=== PATIENT | female | born 1980 | race Caucasian/White ===

== ENCOUNTER 2022-06-24 07:49 | Emergency (ER) | payer OTHER, SELFPAY ==
[2022-06-24 07:52] VITALS: BP 109/72; PULSE 114; RESP 18; TEMP 38.3; O2SAT 99; BMI 23.4
--- NOTE | 2022-06-24 08:04 | EX.ED.DYSGE1 ---
HPI History of Present Illness Chief Complaint: Fever Narrative Narrative: 41-year-old female presenting with neck pain. She states it started on Friday and it was in the right side of her cervical spine and radiated into the trapezius. She states has been trying Motrin and ice and she has not had much success. It is now radiating into her right arm and down into her right posterior ribs. She states he is not short of breath or coughing but does note pain with twisting and moving. Patient went to urgent care today where she was incidentally noted to have a fever. Patient did not know of this. She has not felt sick. She has not had a fever, chills, sweats at home. She is not coughing or short of breath. She does no urinary or vaginal complaints. No diarrhea, nausea, vomiting, abdominal pain. PFSH PFSH Medical History Anxiety and depression Home Medications etonogestrel 0.12 mg-ethinyl estradiol 0.015 mg/24 hr vaginal ring (NuvaRing) 1 vag ring vaginal Q4W #3 ea 10/09/18 [Rx Last Taken Unknown] amoxicillin 875 mg-potassium clavulanate 125 mg tablet 1 tab PO BID #19 tabs 06/24/22 [Rx Last Taken Unknown] cyclobenzaprine 10 mg tablet 10 mg PO TID PRN Muscle Spasm #20 TABLETS 06/24/22 [Rx Last Taken Unknown] escitalopram oxalate 20 mg tablet mg 06/24/22 [History Last Taken Unknown] hydrocodone-acetaminophen 5-325mg 5mg-325mg 1 tab PO Q6H PRN pain 3 days #12 TABLETS 06/24/22 [Rx Last Taken Unknown] quetiapine 50 mg tablet mg 06/24/22 [History Last Taken Unknown] Allergy/AdvReac Type Severity Reaction Status Date / Time mirtazapine [From Remeron] Allergy Other Verified 06/24/22 07:53 Social History Smoking Status: Current every day smoker tobacco type: cigarettes ROS ROS ED Constitutional Constitutional ED: Denies chills, fever(s) or sweats Eyes Eyes: Denies blurry vision or change in vision ENT ENT ED: Denies ear pain or sore throat Cardiovascular Cardiovascular: Reports other Details: Right posterior rib pain ; Denies chest pain, palpitations or racing heartbeat Respiratory/Chest Respiratory/Chest: Denies cough, dyspnea or sputum Gastrointestinal Gastrointestinal: Denies abdominal pain, constipation, diarrhea, nausea or vomiting Genitourinary Genitourinary ED: Denies dysuria, hematuria or urinary frequency Musculoskeletal Musculoskeletal: Reports neck pain; Denies arthralgias or myalgias Integumentary Denies abscess, Abrasions or rash Neurologic Neurologic: Denies headache(s), paresthesias or weakness Psychiatric Psychiatric: Denies anxiety, depression, suicidal ideation or suicidal thoughts Endocrine Endocrinology: Denies polydipsia or polyuria EXAM Physical Exam Const Vital Signs: 06/24/22 07:52 06/24/22 07:57 Temperature 101.0 F H Temperature Source Temporal Pulse Rate 114 H Respiratory Rate 18 Respiratory Effort Normal Non-Labored Respiratory Pattern Normal Blood Pressure 109/72 Blood Pressure Mean 84 Pulse Ox 99 Oxygen Delivery Method Room Air Positive well nourished General Appearance ED: NAD; Negative for pallor HEENT Reports moist mucous membranes Negative for trauma Eyes PERRL and EOMs intact bilaterally Neck Neck Narrative: Tenderness to palpation in the right cervical paraspinal musculature. There is extension into the right trapezius. General: trachea midline; Negative for anterior neck swelling, lymphadenopathy or meningeal signs Chest Wall Chest Narrative: Tenderness overlying the right posterior ribs fairly diffusely. No erythema, bruising,, crepitance. Equal symmetric breath sounds and chest wall rise. Resp normal respiratory effort and clear to auscultation bilaterally Auscultation: Negative for rales, rhonchi or wheezes Cardio regular rhythm Rate: tachycardic GI normal to inspection, nondistended, normoactive bowel sounds Neuro oriented x3, CN's II-XII intact bilaterally and no sensory deficits noted Sensorium / Orientation: alert Motor Exam: strength 5/5 throughout Psych mental status grossly normal Skin no rashes or lesions noted and no wounds General Skin Exam: Negative for jaundice or pallor MDM MDM MDM Narrative Medical decision making narrative: Patient presenting with right-sided neck pain and right rib pain. Patient states that this started on Friday and has progressed. She states Motrin has not been helping it much. Patient has difficulty more with sidebending and head turn to the right than to the left. She does not have any meningeal signs and actually answers questions with nodding and shaking her head yes and no. Incidentally found to have a fever at the urgent care. I do not think it is related to the neck pain at this point. I did order a COVID and influenza. I will obtain imaging of the cervical spine and a chest x-ray two-view. Also we will obtain a urinalysis. Patient medicated with Norflex, Toradol, Tylenol. On reevaluation she is feeling much better. X-ray of the cervical spine on my interpretation shows no acute fractures or subluxation. Chest x-ray two-view interpreted by myself shows a right lower lobe and middle lobe pneumonia. I suspect this is the reason for her fever.. I do not believe she has meningitis. I consider doing blood work however the patient states she does not feel ill at all with exception of the rib pain. COVID and flu are negative. Spoke with Dr. Islas who is on-call for Dr. Rei Soriano. He recommended starting her on Augmentin. Patient states he is going to go on vacation on Friday, so he recommended make an appointment for after her vacation for follow-up. Patient was also given [place] and cyclobenzaprine. She is counseled to alternate these if needed. I recommended not taking them at the same time. Return precautions discussed. Impression: 1. Right lower lobe/middle lobe pneumonia 2. Cervical strain Radiography Diagnostic Testing: Clinical Impression(s) from Imaging Studies Cervical Spine X-Ray 06/24/22 08:32 IMPRESSION: Normal x-ray examination of the visualized cervical spine. Electronically Signed: Abhishek Winters MD at 9:13 EDT , Chest X-Ray 06/24/22 08:32 IMPRESSION: Right lower lobe and right middle lobe consolidation as well as patchy left lower lobe infiltrate. Small right pleural effusion. Electronically Signed: Abhishek Winters MD at 9:14 EDT , Discharge Plan Triage Chief Complaint: Fever ED Provider: Jaswinder Pace Dx/Rx/DC Orders Instructions: ED Pneumonia (Adult) Prescriptions: New amoxicillin-pot clavulanate 875-125 mg tablet 1 tab PO BID Qty: 19 0RF hydrocodone-acetaminophen 5-325 mg tablet 1 tab PO Q6H PRN (Reason: pain) 3 Days Qty: 12 0RF cyclobenzaprine 10 mg tablet 10 mg PO TID PRN (Reason: Muscle Spasm) Qty: 20 0RF No Action escitalopram oxalate 20 mg tablet Label Comments: TAKE 1 TABLET BY MOUTH ONCE DAILY quetiapine 50 mg tablet Label Comments: TAKE 1 TABLET BY MOUTH ONCE DAILY AT BEDTIME NuvaRing 0.12-0.015 mg/24 hr ring 1 vag ring vaginal Q4W Qty: 3 0RF Primary Care Provider: Paulino Cortez Referrals: NOT,DEFINED [Non-Staff] - Disposition Disposition: Home, Self Care Discharge Date/Time: 06/24/22 09:45
[2022-06-24] MEDS: Orphenadrine 60 MG/2 ML Ampul IM (08:13)
[2022-06-24] MEDS: Acetaminophen 500 MG Tablet 1000 MG PO (08:13)
[2022-06-24] MEDS: Ketorolac 15 MG/ML Vial IM (08:14)
--- NOTE | 2022-06-24 08:32 | RAD_ITS ---
STUDY: X-RAY CHEST REASON FOR EXAM: Female, 41 years old. Right-sided chest pain and flank pain. Fever. TECHNIQUE: PA and lateral views of the chest. COMPARISON: None. FINDINGS: There is evidence of a consolidation in the right middle lobe and right lower lobe with evidence of debris tiny right pleural effusion. Patchy infiltrate in the left lower lobe. Normal size heart. Normal mediastinum and vance. Normal visualized pulmonary arteries. Normal visualized aortic arch and descending thoracic aorta. Normal visualized thoracic spine. Normal visualized ribs, clavicles, and shoulders. There is no demonstrated abnormality of the visualized soft tissue structures of the upper abdomen. RAD/Chest PA and Lateral IMPRESSION: Right lower lobe and right middle lobe consolidation as well as patchy left lower lobe infiltrate. Small right pleural effusion. Electronically Signed: Abhishek Winters MD at 9:14 EDT ,
--- NOTE | 2022-06-24 08:32 | RAD_ITS ---
STUDY: X-RAY - CERVICAL SPINE REASON FOR EXAM: Female, 41 years old. Right-sided neck pain and arm pain. TECHNIQUE: 5 view(s) of the cervical spine were obtained including oblique views.. COMPARISON: None FINDINGS: Normal anterior atlantoaxial articulation. Normal odontoid process. Normal cervical lordosis. Normal vertebral bodies and endplates. Normal disc space heights. Normal visualized intervertebral neuroforamina. The soft tissue structures are unremarkable. RAD/Cerv Spine 4 or 5 Views IMPRESSION: Normal x-ray examination of the visualized cervical spine. Electronically Signed: Abhishek Winters MD at 9:13 EDT ,
[2022-06-24] MEDS: Amox/Clavulanate 875 MG Tablet PO (09:41)
== END 2022-06-24 09:45 | disposition home or self-care (01) ==
PROVIDERS: Emergency Provider Student in an Organized Health Care Education/Training Program; PCP Family Medicine; Visit Provider Student in an Organized Health Care Education/Training Program
DX: J18.9 Pneumonia, unspecified organism (principal); S16.1XXA Strain of muscle, fascia and tendon at neck level, initial encounter; X58.XXXA Exposure to other specified factors, initial encounter; F17.210 Nicotine dependence, cigarettes, uncomplicated
CPT/HCPCS: 71046; 72050; 87428; 96372; 99283